=== PATIENT | male | born 1995 | race Two or more races ===

== ENCOUNTER 2022-08-07 12:44 | Emergency (ER) | payer SELFPAY ==
[2022-08-07] MEDS ORDERED: Sodium Chloride 0.9% 10 ML Syringe FLUSH PRN (12:51)
[2022-08-07] MEDS ORDERED: Sodium Chloride 0.9% 2.5 ML Syringe FLUSH PRN (12:51)
[2022-08-07] MEDS ORDERED: Sodium Chloride 0.9% 1,000 ML IV STA ×2 (12:58→14:29)
[2022-08-07] MEDS ORDERED: LORazepam 2 MG/ML SDV IVPUSH STA ×2 (12:58→14:29)
[2022-08-07 13:26] LABS: CARBON DIOXIDE,CO2 26.9 mmol/L (21.0-32.0); POTASSIUM,K 3.9 mmol/L (3.5-5.1)
[2022-08-07] MEDS ORDERED: Alum Hydro/Mag Hydro/Simeth XS 15 ML, Lidocaine 2% 5 ML PO STA ×2 (13:54)
== END 2022-08-07 16:06 | disposition home or self-care (01) ==
LOC: MW.ED 12:44
DX: R07.9 Chest pain, unspecified (principal); F14.10 Cocaine abuse, uncomplicated; F10.129 Alcohol abuse with intoxication, unspecified
CPT/HCPCS: 36415; 71045; 80053; 80305; 81003; 84484; 85025; 93005; 96361; 96374; 96376; 99285; A9270; J2060; J3490; J7030; 93010; 99284